=== PATIENT | male | born 1990 | race Hispanic/Latino ===

== ENCOUNTER 2016-06-20 03:46 | Emergency (ER) | payer OTHER ==
[2016-06-20 04:05] VITALS: BP 143/92; PULSE 80; TEMP 98.2; O2SAT 99
[2016-06-20] MEDS ORDERED: Albuterol-Ipratrop 3 mg / 0.5 (3 ml) UD ONE (04:06)
[2016-06-20] MEDS ORDERED: Albuterol-Ipratrop 3 mg / 0.5 (3 ml) UD INH STA (04:09)
[2016-06-20] MEDS: Albuterol-Ipratrop 3 mg / 0.5 (3 ml) UD INH STA ×3 (04:16→05:58)
--- NOTE | 2016-06-20 04:16 | ED PDOC ---
HPI: SOB/CHF/COPD Time Seen by Provider: 06/20/16 03:51 Chief Complaint (Nursing): Shortness Of Breath Chief Complaint (Provider): wheezing, stuffy/runny nose History Per: Patient History/Exam Limitations: no limitations Onset/Duration Of Symptoms: Days Current Symptoms Are (Timing): Still Present Additional Complaint(s): 25yo male with PMHx including asthma presents to the ED with c/o runny/stuffy nose and wheezing. Patient reports being with dogs over the weekend which is usually a trigger of his asthma. Even after he removed himself from dogs he continued to experience wheezing. Of note, patient has multiple allergies. Patient used pump at home with no relief. Denies fevers. Notes dry cough. Past Medical History Reviewed: Historical Data, Nursing Documentation, Vital Signs Vital Signs: Last Vital Signs Temp 98.2 F 06/20/16 04:04 Pulse 80 06/20/16 04:04 Resp 18 06/20/16 04:46 BP 143/92 H 06/20/16 04:04 Pulse Ox 99 06/20/16 04:46 - Medical History PMH: Asthma - Surgical History Surgical History: No Surg Hx - Family History Family History: States: No Known Family Hx - Home Medications Home Medications: Ambulatory Orders Medication Instructions Recorded Albuterol 0.083% [Albuterol 0.083% 2.5 mg IH Q4 PRN #1 06/20/16 Inhal Suzan (2.5 mg/3 ml) UD] Fluticasone Nasal [Flonase] 1 actuation NS BID #1 spr 06/20/16 predniSONE [predniSONE Tab] 60 mg PO DAILY #9 tab 06/20/16 - Allergies Allergies/Adverse Reactions: Allergies Allergy/AdvReac Type Severity Reaction Status Date / Time No Known Allergies Allergy Verified 06/20/16 04:03 Review of Systems ROS Statement: Except As Marked, All Systems Reviewed And Found Negative Constitutional: Negative for: Fever ENT: Positive for: Other (runny/stuffy nose ) Respiratory: Positive for: Cough (dry ), Wheezing Physical Exam - Reviewed Nursing Documentation Reviewed: Yes Vital Signs Reviewed: Yes - Physical Exam Appears: Positive for: Well, No Acute Distress Head Exam: Positive for: ATRAUMATIC, NORMAL INSPECTION, NORMOCEPHALIC Skin: Positive for: Normal Color, Warm, Dry Eye Exam: Positive for: Normal appearance, EOMI, PERRL ENT: Positive for: Normal ENT Inspection Neck: Positive for: Normal, Painless ROM, Supple Cardiovascular/Chest: Positive for: Regular Rate, Rhythm. Negative for: Murmur , Tachycardia Respiratory: Positive for: Wheezing (b/l wheezing worse on the left ), Other ( prolonged expiratory phase ). Negative for: Respiratory Distress Gastrointestinal/Abdominal: Positive for: Normal Exam, Bowel Sounds, Soft. Negative for: Tenderness Back: Positive for: Normal Inspection Extremity: Positive for: Normal ROM. Negative for: Deformity, Swelling Neurologic/Psych: Positive for: Alert, Oriented. Negative for: Motor/Sensory Deficits - ECG O2 Sat by Pulse Oximetry: 99 Pulse Ox Interpretation: Normal (RA) Medical Decision Making Medical Decision Makin: Impression: mild to moderate asthma exacerbation Plan: duoneb 3ml INH, prednisone 60mg PO reassess 5aM: PT. feeling much better, no longer wheezing. return precautions given and told to f/u w/ PMD Scribe Attestation: Documented by Gavin Ott acting as a scribe for Garrett Castro MD. Provider Scribe Attestation: All medical record entries made by the Scribe were at my direction and personally dictated by me. I have reviewed the chart and agree that the record accurately reflects my personal performance of the history, physical exam, medical decision making, and the department course for this patient. I have also personally directed, reviewed, and agree with the discharge instructions and disposition. Disposition - Clinical Impression Clinical Impression: Asthma - Disposition Referrals: Regulatory Coordinator Service [Outside] Disposition Time: 05:19 Condition: IMPROVED Prescriptions: Albuterol 0.083% [Albuterol 0.083% Inhal Suzan (2.5 mg/3 ml) UD] 2.5 mg IH Q4 PRN #1 PRN Reason: Wheezing Fluticasone Nasal [Flonase] 1 actuation NS BID #1 spr predniSONE [predniSONE Tab] 60 mg PO DAILY #9 tab Instructions: Asthma (ED)
[2016-06-20 04:52] VITALS: RESP 18
== END 2016-06-20 06:11 | disposition home or self-care (01) ==
LOC: H.ER 03:46
DX: J45.901 Unspecified asthma with (acute) exacerbation (principal); R05 Cough